=== PATIENT | female | born 2000 | race Caucasian/White ===

== ENCOUNTER 2020-08-11 15:09 | Outpatient (CLI) | payer OTHER | END 2020-08-11 16:48 | disposition home or self-care (01) | LOC: GENOP 15:09 | DX: O26.893 Other specified pregnancy related conditions, third trimester (principal); Z3A.38 38 weeks gestation of pregnancy | CPT/HCPCS: 81001; 83518; G0463 ==

== ENCOUNTER 2020-08-15 19:04 | Outpatient (CLI) | payer OTHER | END 2020-08-15 21:39 | disposition home or self-care (01) | LOC: GENOP 19:04 | DX: Z53.8 Procedure and treatment not carried out for other reasons (principal) | CPT/HCPCS: 81001; G0463 ==

== ENCOUNTER 2020-08-17 22:56 | Inpatient (IN) | payer OTHER ==
[~2020-08-17] VITALS: Ht 172.7 cm; Wt 93.0 kg
[2020-08-18 05:28] LABS: HEMOGLOBIN 10.9 gm/dl (12.3-15.3); RED BLOOD COUNT 4.5 M/UL (4.00-5.10); WHITE BLOOD COUNT 12.4 K/UL (4.5-11.0)
[2020-08-18] MEDS ORDERED: PRENATAL VITAM1 EAC3 PO (08:44)
[2020-08-18] MEDS ORDERED: COLACE100 MG PO (15:38)
[2020-08-18] MEDS ORDERED: FERREX 150150 MG PO (15:38)
[2020-08-18] MEDS ORDERED: IBUPROFEN800 MG PO (15:38)
[2020-08-19 05:57] LABS: HEMOGLOBIN 9.4 gm/dl (12.3-15.3)
== END 2020-08-20 13:14 | disposition home or self-care (01) | DRG 807 ==
LOC: GENOP 22:56 → OB 08-18 04:00
PROVIDERS: ADMIT Obstetrics & Gynecology
PROC: 10E0XZZ Delivery of Products of Conception, External Approach (ICD-10-PCS; principal; 2020-08-18)
PROC: 0HQ9XZZ Repair Perineum Skin, External Approach (ICD-10-PCS; 2020-08-18)
PROC: 10907ZC Drainage of Amniotic Fluid, Therapeutic from Products of Conception, Via Natural or Artificial Opening (ICD-10-PCS; 2020-08-18)
DX: O70.0 First degree perineal laceration during delivery (principal); Z37.0 Single live birth; Z3A.39 39 weeks gestation of pregnancy; J30.2 Other seasonal allergic rhinitis
CPT/HCPCS: 36415; 51702; 80307; 81001; 85014; 85018; 85025; 85461; 86850; 86900; 86901; G0463; J2001; J2405; J2590; J2790; J2795; J7120; U0002